=== PATIENT | male | born 1950 | race Caucasian/White ===

== ENCOUNTER 2025-03-18 18:20 | Observation (INO) | payer MEDICARE, OTHER, SELFPAY ==
[2025-03-18 15:37] VITALS: BP 162/72
[2025-03-18 16:26] VITALS: BMI 30.1
--- NOTE | 2025-03-18 16:43 | ED.GENMED ---
History of Present Illness
General
Chief Complaint: Rectal Bleeding
Time Seen by Provider: 03/18/25 16:18
History of Present Illness
History of Present Illness:
Patient is a 74-year-old man presenting to the emergency department with dark tarry stools for the past 3 weeks. Patient states that he noticed this about 3 weeks ago. This has never happened to him before. He is slightly lightheaded dizzy
especially upon movement. No abdominal pain. No alcohol use. He is taking ibuprofen for hip pain for the past few weeks. He is not on a blood thinner. He did have a colonoscopy done 3 years ago which was normal. Has never had an endoscopy. No
chest pain difficulty breathing. No vomiting.
Past History
Past History
ED Past Medical History: HTN
ED Past Surgical History: Appendectomy and Cholecystectomy
Social History
Tobacco: Non-smoker
Family History
Family History: Negative Early CAD
Phy Exam
Physical Exam
Physical Exam:
GENERAL: in no acute distress
HEENT: normocephalic, extraocular movements intact, dry oral mucosa
NECK: normal inspection
RESPIRATORY: no respiratory distress, clear to auscultation bilaterally
CARDIOVASCULAR: regular rate and rhythm
ABDOMEN/: soft, non-distended, non-tender to palpation, no rebound or guarding
EXTREMITIES: non-tender, no edema/swelling
NEUROLOGIC: awake and alert, moves all extremities
SKIN: warm
Course
Orders/Labs/Results
Orders:
Orders
03/18/25 16:43
0.9% Sodium Chloride 1000 ml [Nss] 1,000 ml IV BOLUS
03/18/25 16:44
Complete Blood Count/With Diff Urgent
Comprehensive Metabolic Panel Urgent
PTT Urgent
Prothrombin Time Urgent
03/18/25 16:48
Pantoprazole [Protonix IV] 40 mg IV NOW STA
03/18/25 17:00
Type+Screen Urgent
Abnormal Lab Results
03/18/25
16:44
RBC 2.78 L 10^6/uL
(4.70-6.10)
Hgb 9.3 L g/dL
(13.0-18.0)
Hct 27.2 L %
(39.0-52.0)
MCV 97.8 H fL
(80.0-94.0)
MCH 33.5 H pg
(27.0-31.0)
Chloride 109 H mmol/L
(98-107)
Calcium 8.3 L mg/dl
(8.4-10.2)
Total Protein 6.2 L g/dl
(6.3-8.2)
03/18/25 16:44
03/18/25 16:44
Vital Signs
Initial and Last Documented VS:
Initial Vital Signs
Temp Pulse Resp BP Pulse Ox
98.2 F 64 16 162/72 99
03/18/25 15:37 03/18/25 15:37 03/18/25 15:37 03/18/25 15:37 03/18/25 15:37
Last Documented Vital Signs
Temp Pulse Resp BP Pulse Ox
98.2 F 64 16 162/72 99
03/18/25 15:37 03/18/25 15:37 03/18/25 15:37 03/18/25 15:37 03/18/25 16:43
MDM/Problems Addressed
Differential Diagnosis Includes:
74-year-old man with history of hypertension, hyperlipidemia presenting to the emergency department with dark stools for the past few weeks as well as feeling lightheaded dizzy upon movement. On arrival vitals unremarkable. His stool is dark tarry
and guaiac positive per primary care note that patient was accompanied with. Concern for upper GI bleed likely from peptic ulcer disease as patient is on NSAIDs. Other to consider would be Seema-Aranda tear or AVM though less likely. History and
exam not consistent with variceal bleeding. Will check blood work and start fluids given orthostsis. Will give protonix.
*Pulse Oximetry
SaO2: 99
Oxygen Mode of Delivery: Room air
Patient hypoxic: no
*Critical Care Note
Total Time (30-74mins, 75-104mins- exclusive of procedures): Not Applicable
Update Note
Update Note:
Hemoglobin is 9.3 with baseline of 13.
Nubia-Blatchford Bleeding Score is 7. patient will need admission for further evaluation. Discussed with hospitalist who accepted patient to their service.
ED Attending Note
-
Portions of this chart may have been created with voice recognition software.� Occasional wrong word or��sound alike� substitutions may have occurred due to the inherent limitations of voice recognition software.
Discharge Plan
Departure
Patient Disposition: Admit
Date of Disposition: 03/18/25
Time of Disposition: 17:31
Presentation/result/management discussed w/ accepting MD/DO: Hospitalist
Discharge Problem:
UGIB (upper gastrointestinal bleed)
Prescriptions:
No Action
atorvastatin [Lipitor] 20 mg Tablet
20 mg PO DAILY
amlodipine [Norvasc] 5 mg Tablet
5 mg PO DAILY
tamsulosin [Flomax] 0.4 mg Capsule
0.4 mg PO DAILY
naproxen sodium [Aleve] 220 mg Tablet
220 mg PO BIDPRN PRN (Reason: mild pain)
Metamucil 3 In 1 Fiber
1 cap PO QPM
Referrals:
Stevo Monzon MD [Family Provider, Internal Medicine]
Interventions
Interventions:
*Risk Screen - Suicide Last Done: 03/18/25 15:37
*Neglect/Abuse Screening Last Done: 03/18/25 15:37
NT-Ajwzun-Kbgpsgvyov Assessment Last Done: 03/18/25 16:26
ED- Cardiac Assessment Last Done: 03/18/25 16:26
ED- Pulmonary Assessment Last Done: 03/18/25 16:26
Discharge Date and Time
Print Language: BULGARIAN
[2025-03-18] MEDS: NSS 1000 IV (16:45)
[2025-03-18 17:04] LABS: Hematocrit 27.2 % (39.0-52.0); Hemoglobin 9.3 g/dL (13.0-18.0); Mean Corp Hgb Conc. 34.2 g/dL (33.0-37.0); Mean Corpuscular Volume 97.8 fL (80.0-94.0); Nucleated Red Blood Cells % 0 % (-); Platelet Count 234 10^3/uL (130-400); Red Cell Dist. Width 13.3 % (11.5-14.5)
[2025-03-18 17:22] LABS: ALT (SGPT) 18 U/L (0-50); AST (SGOT) 18 U/L (17-59); Albumin 3.5 g/dl (3.5-5.0); Alkaline Phosphatase 54 U/L (38-126); Blood Urea Nitrogen 13 mg/dl (9-20); Calcium 8.3 mg/dl (8.4-10.2); Carbon Dioxide 28 mmol/L (22-30); Chloride 109 mmol/L (98-107); Estimated Creatinine Clearance 83 ml/min; Glucose 84 mg/dl (70-99); Potassium 3.7 mmol/L (3.5-5.1); Sodium 137 mmol/L (135-145); Total Protein 6.2 g/dl (6.3-8.2); eGFR > 60.00
[2025-03-18 17:23] LABS: INR 1.01; PT 13.6 Sec (11.4-14.6)
[2025-03-18 17:24] LABS: APTT 29.5 Sec (23.4-35.0)
--- NOTE | 2025-03-18 17:51 | HPS.HSE ---
Family Physician
-
Family Physician: Stevo Monzon
Chief Complaint
-
Dark stool
History of Present Illness
Patient is a pleasant 74 years old with a history of BPH, hypertension, colon polyp, who was taken Naprosyn at home for hip pain, presented to the ER with dark stool.
Patient was having hip pain and was taking Aleve as outpatient, he admitted taking 2 pills every 2 to 3 days, otherwise patient denies any chest pain or shortness of breath.
Patient was having dizziness and some dyspnea on exertion.
Patient seen and examined at bedside, denies any chest pain or shortness of breath, no abdominal pain, no nausea, no vomiting, no diarrhea or constipation.
Initial blood work in the ER shows hemoglobin 9.3 otherwise labs unremarkable.
Patient be admitted under hospitalist service, clear liquid diet, n.p.o. after midnight.
Medical History
Past Medical History
Past Medical History: Reports HTN, Hypercholesterolemia and Other
Additional Past Medical History:
BPH
Past Surgical History: Reports Other (Colonoscopy)
Social History
Tobacco: Non-smoker
Alcohol: None
Drug: None
Family History
Family History: Not pertinent
Allergies / Home Medications
Allergies reflects when Allergies were last updated in [facility].
Home Medications with original date entered in [facility]
Allergy/Medication List:
Allergies
Allergy/AdvReac Type Severity Reaction Status Date / Time
No Known Allergies Allergy Unverified 05/14/11 14:06
Home Medications
Metamucil 3 In 1 Fiber 1 cap PO QPM Supplement 03/18/25
amlodipine 5 mg tablet (Norvasc) 5 mg PO DAILY Blood Pressure 03/18/25
atorvastatin 20 mg tablet (Lipitor) 20 mg PO DAILY High Cholesterol 03/18/25
naproxen sodium 220 mg tablet (Aleve) 220 mg PO BIDPRN PRN mild pain 03/18/25
tamsulosin 0.4 mg capsule (Flomax) 0.4 mg PO DAILY 03/18/25
Review of Systems
-
A 12 point ROS was completed and negative except as noted: Yes
Constitutional: Reports Fatigue; Denies Fever, Weight Gain, Weight Loss or Sleep Disturbance
EENT: Denies Tearing, Sore Throat, Mouth Pain, Mouth Swelling or Runny Nose
Respiratory: Reports Other (Dyspnea on exertion); Denies Cough, Hemoptysis or Trouble Breathing
Cardiac: Denies Chest Pain, Diaphoresis, Palpitations or Syncope
Abdomen/GI: Denies Abdominal Pain, Nausea, Vomiting, Diarrhea, Constipated, Bloody Stools or Black Stools
: Denies Dysuria, Frequency, Flank Pain, Incontinence, Difficulty Voiding, Urgency, Bleeding or Dark Urine
Musculoskeletal: Denies Joint Pain, Joint Swelling, Muscle Pain, Muscle Stiffness or Edema
Skin: Denies Itching or Rash
Neurological: Reports Dizzy; Denies Headache, Weakness or Numbness
Endocrine: Denies Polyuria, Polydipsia or Temp Intolerance
Hematologic/Lymphatic: Denies Bleeding, Swollen Glands or Bruising
Psych: Reports Calm; Denies Depression, Anxiety or Panic Disorder
Physical Exam
Vital Signs
Vital Signs
Temp Pulse Resp BP Pulse Ox
98.2 F 64 16 162/72 99
03/18/25 15:37 03/18/25 15:37 03/18/25 15:37 03/18/25 15:37 03/18/25 16:43
Physical Exam
General: Well Developed, Well Nourished, No Apparent Distress, Comfortable and Good Appetite; No Pain, Chills or Sweats
HEENT: NormoCephalic, Moist mucous membranes, Atraumatic, Good Dentition, PERRLA, Nose Appears Normal and Ears Appear Normal
Respiratory: Clear
Cardiac: S1/S2 and Regular Rhythm
Breast: Deferred by me
GI: Soft, Non Tender, Non Distended and Normal Bowel Sounds
Genito-urinary: Deferred by me
Musculoskeletal: No Clubbing, No Cyanosis and No Edema
Skin: Warm; No Rash, Jaundice, Ulcers, Lesions or Decubitus Ulcers
Neuro: Awake, Alert, Oriented, AO x 3, No Motor Deficits, Nonfocal/grossly intact and Cranial Nerves Intact
Hematologic/Lymphatic: No Lymphadenopathy
Psych: Calm
Laboratory Results
-
03/18/25 16:44
03/18/25 16:44
Laboratory Results
PT 13.6 Sec (11.4-14.6) 03/18/25 16:44
INR 1.01 03/18/25 16:44
APTT 29.5 Sec (23.4-35.0) 03/18/25 16:44
Total Bilirubin 0.3 mg/dl (0.2-1.3) 03/18/25 16:44
AST 18 U/L (17-59) 03/18/25 16:44
ALT 18 U/L (0-50) 03/18/25 16:44
Alkaline Phosphatase 54 U/L (38-126) 03/18/25 16:44
Data Reviewed
-
Diagnostic Radiology: Report Reviewed by me
CT Scan: Report Reviewed by me
Medical Tests (Nuc Med, Echo, EKG etc): Report Reviewed by me
Lab Data: Labs Reviewed by me
Old Records: Reviewed
Impression/Plan
-
Impression:
Patient is a pleasant 74 years old with a history of BPH, hypertension, colon polyp, who was taken Naprosyn at home for hip pain, presented to the ER with dark stool.
Patient was having hip pain and was taking Aleve as outpatient, he admitted taking 2 pills every 2 to 3 days, otherwise patient denies any chest pain or shortness of breath.
Patient was having dizziness and some dyspnea on exertion.
Patient seen and examined at bedside, denies any chest pain or shortness of breath, no abdominal pain, no nausea, no vomiting, no diarrhea or constipation.
Initial blood work in the ER shows hemoglobin 9.3 otherwise labs unremarkable.
Patient be admitted under hospitalist service, clear liquid diet, n.p.o. after midnight.
Assessment/plan:
Acute GI bleed
Severe upper GI bleed.
Secondary to NSAID use.
Discontinue naproxen.
Pantoprazole IV twice daily.
Clear liquid diet.
N.p.o. after midnight.
Gastroenterology consult.
Monitor H&H
Acute blood loss anemia.
Symptomatic anemia
Normocytic
Secondary to above GI bleeding
Check iron studies/vitamin B12
History of hypertension
Continue home meds.
History of hyperlipidemia
Continue statin
CODE STATUS: Full code
DVT prophylaxis: SCDs
Diet: Liquid diet
Disposition: N.p.o. after midnight
Total time spent on today's encounter was 75 minutes which included time spent in counseling the patient/family regarding diagnosis and treatment plan as listed above, goals of care, and symptom management. Case was discussed with nursing staff,
specialists, and care coordinators/case management. All labs and imaging personally reviewed by me. Remainder the time spent in detailed review of previous records, lab data, imaging, and other medical provider documentation.
--- NOTE | 2025-03-18 18:03 | W.PN.UPDATE ---
Update Note
Progress Note Update
Post EGD:
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 No active bleeding and it was superficial. So, plan today - clears, repeat hgb at 1300 and if stable and he's
not orthostatic - ok for home on BID ppi x 1 month, then once daily ppi with normal diet. 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
biospies pending for h.pylori and of the ampulla deformity
will set up patient for outpatient followup
[2025-03-18 18:58] VITALS: BP 137/73
[2025-03-18] MEDS: PROTONIX IV 40 MG IV ×2 (19:01→21:00)
[2025-03-18 19:50] VITALS: BP 165/71; BMI 29.5
[2025-03-18] MEDS: NSS (PRESERVATIVE FREE) 10 ML IV (20:59)
[2025-03-18] MEDS: METAMUCIL, KONSYL 1 PACKET PO (20:59)
[2025-03-18] MEDS: NORVASC 5 MG PO (21:00)
[2025-03-18 21:23] LABS: Hematocrit 24.9 % (39.0-52.0); Hemoglobin 8.8 g/dL (13.0-18.0)
[2025-03-18 22:53] VITALS: BP 146/70
[2025-03-19 03:00] VITALS: BP 125/62
[2025-03-19 06:33] LABS: Hematocrit 25.6 % (39.0-52.0); Hemoglobin 8.8 g/dL (13.0-18.0); Mean Corp Hgb Conc. 34.4 g/dL (33.0-37.0); Mean Corpuscular Volume 93.8 fL (80.0-94.0); Platelet Count 219 10^3/uL (130-400); Red Cell Dist. Width 13.2 % (11.5-14.5)
--- NOTE | 2025-03-19 07:06 | CON.GI ---
Addendum entered and electronically signed by Aliya Brian DO 03/19/25 09:49:
Nolberto is a 74-year-old male with history of hyperlipidemia, obesity who has had hip pain for a few months who has been on Aleve daily for at least 1-1/2 months. About a 1-1/2 weeks ago he noticed his stools changed to dark and sticky. Started
feeling lightheaded went to his neighbor who is a retired GI doctor who told him to go to his PCP. PCP did an occult blood test which was black and strongly heme positive. He does not take a PPI but does get indigestion at times and takes Tums.
He denies any dysphagia, has heartburn on occasion, no nausea vomiting or abdominal pain. He has never had a blood transfusion. Had an ERCP in 2010 for choledocholithiasis. Last colonoscopy in 2020.
Patient on twice daily PPI. He is hemodynamically stable. Reviewed blood work. Normal BUN, hemoglobin 9.3 down from 14.5 in November 2024. Hemoglobin today 8.8. Overnight had black and brown stool.
Plan: EGD today
Original Note:
Consultation
-
Date/Time Consultation Requested: 03/18/251954
Date/Time Consultation Performed: 03/18/25744
Requesting Provider: Elvira Del Castillo MD
Performing Provider: ROCIO Babcock, Aliya Brian DO
Reason for Consultation: GI bleed
Medical History
Chief Complaint / HPI
History of Present Illness:
Pt is a 74yo presents with hx Asthma, HTN, hypercholesterolemia, BPH, appe, ragini, with hx hip pain with Aleve use twice a day for last 2 weeks. He is noted with onset of dark stools about 1 1/2 weeks ago. On admission hbg 9.3 with drop to 8.8
iwth normal BUN. Last hbg 14.5 in November 2024. He admits to some dizziness and mild shortness of breath with symptoms. He has chronic constipation with variable stools will have BM then several loose stools. Over last 2 weeks noted increased
stool frequency and tarry consistency of stools with slight red hue around stool. Overnight noted black then brown stool. No hx EGD in past but prior colon and ERCP. He dose also admit to occasional TUMS use but no anticoagulation use.
Pt denies dysphagia, odynophagia, GERD, nausea, vomiting, hematemesis, abdominal pain.
05/2020 [facility]-- colonoscopy - One 5 mm polyp in the rectum. Biopsied. Diverticulosis, normal mucosa in entire colon bx taken for microscopic colitis bx HP polyp, neg for colitis
04/2011 [facility] -ERCP Choledocholithiasis was found. Complete removal was accomplished by biliary sphincterotomy and sweep of duct with balloon.
05/2008- [facility] - colonoscopy - Minimal diverticulosis in the sigmoid colon. The examination was otherwise normal.
Past Medical History
Past Medical History: Asthma, HTN, Hypercholesterolemia and Other (BPH, colon polyps)
Past Surgical History: Appendectomy, Cholecystectomy and Other (prior ERCP for choledocholithiasis )
Social History
Tobacco: Former Smoker
Alcohol: None
Drug: None
Personal:
Living: With Family
Employment: Retired
Family History
Family History: Reviewed & Not Pertinent
Allergies / Home Medications
Allergy/AdvReac Type Severity Reaction Status Date / Time
No Known Allergies Allergy Unverified 05/14/11 14:06
�Medication �Instructions �Recorded
Metamucil 3 In 1 Fiber 1 cap PO QPM Supplement 03/18/25
amlodipine 5 mg tablet (Norvasc) 5 mg PO DAILY Blood Pressure 03/18/25
atorvastatin 20 mg tablet (Lipitor) 20 mg PO DAILY High Cholesterol 03/18/25
naproxen sodium 220 mg tablet 220 mg PO BIDPRN PRN mild pain 03/18/25
(Aleve)
tamsulosin 0.4 mg capsule (Flomax) 0.4 mg PO DAILY 03/18/25
Review of Systems
Vital Signs
Temp Pulse Resp BP Pulse Ox
98.1 F 61 16 125/62 97
03/19/25 03:00 03/19/25 03:00 03/19/25 03:00 03/19/25 03:00 03/19/25 03:00
Physical Exam
Exam
General: Well Developed, Well Nourished and No Apparent Distress
HEENT: Normocephalic
Respiratory: Clear
Cardiac: Other (bradicardia )
GI: Soft, Non Tender and Non Distended
Musculoskeletal: No Clubbing and No Cyanosis
Skin: Warm and Dry
Neuro: Awake, Alert and AO x 3
Psych: Calm
Results
WBC 6.3 10^3/uL (4.8-10.8) 03/19/25 05:25
Hgb 8.8 g/dL (13.0-18.0) L 03/19/25 05:25
Hct 25.6 % (39.0-52.0) L 03/19/25 05:25
MCV 93.8 fL (80.0-94.0) 03/19/25 05:25
Plt Count 219 10^3/uL (130-400) 03/19/25 05:25
Absolute Neuts (auto) 3.7 10^3/uL (1.4-6.5) 03/18/25 16:44
PT 13.6 Sec (11.4-14.6) 03/18/25 16:44
INR 1.01 03/18/25 16:44
APTT 29.5 Sec (23.4-35.0) 03/18/25 16:44
Sodium 137 mmol/L (135-145) 03/18/25 16:44
Potassium 3.7 mmol/L (3.5-5.1) 03/18/25 16:44
Chloride 109 mmol/L (98-107) H 03/18/25 16:44
Carbon Dioxide 28 mmol/L (22-30) 03/18/25 16:44
BUN 13 mg/dl (9-20) 03/18/25 16:44
Creatinine 0.8 mg/dL (0.7-1.3) 03/18/25 16:44
Calcium 8.3 mg/dl (8.4-10.2) L 03/18/25 16:44
Total Bilirubin 0.3 mg/dl (0.2-1.3) 03/18/25 16:44
AST 18 U/L (17-59) 03/18/25 16:44
ALT 18 U/L (0-50) 03/18/25 16:44
Alkaline Phosphatase 54 U/L (38-126) 03/18/25 16:44
Diagnostic Image Results:
none
Prior GI Procedures:
05/2020 [facility]-- colonoscopy - One 5 mm polyp in the rectum. Biopsied. Diverticulosis, normal mucosa in entire colon bx taken for microscopic colitis bx HP polyp, neg for colitis
04/2011 [facility] -ERCP Choledocholithiasis was found. Complete removal was accomplished by biliary sphincterotomy and sweep of duct with balloon.
05/2008- [facility] - colonoscopy - Minimal diverticulosis in the sigmoid colon. The examination was otherwise normal.
Assessment / Plan
-
Pt is a 74yo presents with hx Asthma, HTN, hypercholesterolemia, BPH, appe, ragini, with hx hip pain with Aleve use twice a day for last 2 weeks. He is noted with onset of dark stools about 1 1/2 weeks ago. On admission hbg 9.3 with drop to 8.8
iwth normal BUN. Last hbg 14.5 in November 2024. He admits to some dizziness and mild shortness of breath with symptoms. He has chronic constipation with variable stools will have BM then several loose stools. Over last 2 weeks noted increased
stool frequency and tarry consistency of stools with slight red hue around stool. Overnight noted black then brown stool. No hx EGD in past but prior colon and ERCP. He dose also admit to occasional TUMS use but no anticoagulation use. hx ERCP in
2010 for stone removal and colonoscopy 05/2020 [facility]- - One 5 mm polyp in the rectum. Biopsied. Diverticulosis, normal mucosa in entire colon bx taken for microscopic colitis bx HP polyp, neg for colitis
-dark stool with concern for UGI bleed
-anemia with drop in hbg from November
-hip pain with Naprosyn use
-chronic constipation/diarrhea prior to admission
other medical problems:
-HTN
-hypercholesterolemia
-BPH
-appe
-s/p Ragini, prior ERCP for stone removal 2010
PLAN:
etiology of bleeding repeated to PUD with recent NSAID use, ectasia, mass vs other--likely upper source but SB and colon in differential with normal BUN
plan for EGD today -- Pt agreeable to proceed-- if neg consider colon/capsule
trend hbg and stool record
transfuse <7
NPO
cont Protonix BID
currently on Metamucil daily
-
-
Thank you for consultation and allowing me to participate in the patient's care. Please call the transmission system operator GI physician during the after hours with any questions or concerns.
[2025-03-19 07:18] LABS: Blood Urea Nitrogen 9 mg/dl (9-20); Calcium 7.9 mg/dl (8.4-10.2); Carbon Dioxide 27 mmol/L (22-30); Chloride 108 mmol/L (98-107); Estimated Creatinine Clearance 73 ml/min; Glucose 97 mg/dl (70-99); Potassium 3.7 mmol/L (3.5-5.1); Sodium 141 mmol/L (135-145); eGFR > 60.00
[2025-03-19 07:28] LABS: Total Iron Binding Capacity 262 ug/dl (261-462)
[2025-03-19 07:31] VITALS: BP 129/66
[2025-03-19 08:03] LABS: Vitamin B12 382 pg/ml (239-931)
[2025-03-19 08:09] LABS: Ferritin 50.3 ng/ml (17.9-464.0)
--- NOTE | 2025-03-19 08:33 | W.PN.HOSP.TC ---
Addendum entered and electronically signed by Estefany Felix MD 03/19/25 11:49:
Attending�addendum:
I saw and evaluated the patient. I reviewed the resident�s note and agree with findings and plan as documented in the resident�s note.��patient seen and examined at bedside, denies any chest pain or shortness of breath, no abdominal pain, no nausea,
no vomiting, no diarrhea or constipation.
EGD done today showed:
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
esophagus.
- No biopsies taken in the esophagus in the setting of active melena
and hospitalization. Will need repeat EGD with biopsies. Will need
indefinite ppi
- 2 cm hiatal hernia.
- Erosive gastropathy with no bleeding and no stigmata of recent
bleeding. Biopsied.
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
and the ampulla has changed. Biopsied - minimal biopsies taken with
tissue received. If non-diagnostic will need repeat. Likely will
need EUS with Dr. Beaulieu.
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
- The examination was otherwise normal
Physical�exam:
GENERAL : Patient is awake, alert, oriented x3
HEENT: Nonicteric sclerae, PERRLA, EOMI. Oropharynx clear. Moist mucous membranes. Conjunctivae appear well perfused.
CHEST: Chest wall is nontender.
HEART: Regular rate and rhythm without murmurs.
LUNGS: Clear to auscultation bilaterally.
ABDOMEN: Soft, positive bowel sounds, nontender, no organomegaly.
RECTAL: Deferred.
MUSCLES/EXTREMITIES: No abnormal range of motion, no swelling.SKIN: No rash, no excessive bruising, petechiae, or purpura.
NEUROLOGIC: Cranial nerves II-XII intact without motor/sensory deficit.
�
Assessment/plan:
Acute GI bleed
EGD finding as above.
Continue pantoprazole twice daily.
Clear liquid diet.
Repeat H&H and orthostatic vitals at noon if normal can be discharged home
Symptomatic anemia.
Patient still with dizziness.
Vitamin B12 deficiency.
Status post injection
CODE STATUS: Full code
DVT prophylaxis: SCDs
Diet: CLD
Disposition: Repeat H&H and orthostatics and discharge if normal
�
Total time spent on today�s encounter was 52 minutes which included time spent in counseling the patient/family regarding diagnosis and treatment plan as listed above, goals of care, and symptom management. Case was discussed with nursing staff,
specialists, and care coordinators/case management. All labs and imaging personally reviewed by me. Remainder the time spent in detailed review of previous records, lab data, imaging, and other medical provider documentation.
Original Note:
Today's Communication/Plan
-
Monitor H&H, can be dc'd if Hgb stable at 1 PM
Continue PPI
Vitamin B 12 supplementation
Assessment / Plan
Assessment / Plan
ASSESSMENT:
74 y/o male with PMH HTN, colon polyps and hyperlipidemia who presented with dark stool x 3 weeks. He had been taking naproxen at home for hip pain- approx 2 pills every 2-3 days. He had associated dizziness and dyspnea on exertion. Hgb in ED 9.3.
Admitted for GI bleed secondary to NSAID use, put on IV Protonix BID, and has been NPO for possible EGD.
05/2020 [facility]-- colonoscopy - One 5 mm polyp in the rectum. Biopsied. Diverticulosis, normal mucosa in entire colon bx taken for microscopic colitis bx HP polyp, neg for colitis
EGD 03/19/25:
Impression:
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
esophagus.
- No biopsies taken in the esophagus in the setting of active melena
and hospitalization. Will need repeat EGD with biopsies. Will need
indefinite ppi
- 2 cm hiatal hernia.
- Erosive gastropathy with no bleeding and no stigmata of recent
bleeding. Biopsied.
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
and the ampulla has changed. Biopsied - minimal biopsies taken with
tissue received. If non-diagnostic will need repeat. Likely will
need EUS with Dr. Beaulieu.
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
- The examination was otherwise normal.
PLAN:
# Acute GI bleed
Hgb 9.3 on, baseline 13. Hgb 8.8 03/19 morning. Will repeat H&H around 1 PM today. If stable, can be discharged today.
Secondary to Naproxen use for hip pain, discontinue NSAIDs
Continue Protonix BID x1 month, and once daily indefinitely.
GI consulted. EGD performed 03/19/25- as above. No source of bleed found.
Clear liquid diet today.
Await biopsy results.
Avoid NSAIDs. Use Tylenol for pain
Transfuse PRBCs if Hgb <7.
# Acute blood loss anemia
Symptomatic anemia, secondary to GI bleed, patient feeling dizzy
Normocytic
Normal iron studies
Vitamin B12 - 382, lower end of normal. Will give Vit B 12 1000 mg IM.
# History of Hypertension
Continue amlodipine 5 mg daily
# History of hyperlipidemia
Continue atorvastatin 20 mg daily
DVT prophylaxis: SCDs
FULL CODE
Anticipated Discharge: Today
Subjective/Interval History
-
Date of Service: March 19, 2025
Patient evaluated at bedside this morning. He states he still feels a little dizzy. No other complaints.
Objective Data
-
Labs:
Laboratory Results
03/18/25 03/19/25
21:06 05:25
WBC 6.3
Hgb 8.8 L 8.8 L
Hct 24.9 L 25.6 L
Plt Count 219
Sodium 141
Potassium 3.7
Chloride 108 H
Carbon Dioxide 27
BUN 9
Creatinine 0.8
Glucose 97
Calcium 7.9 L
Vital Signs:
Vital Signs
Temp Pulse Resp BP Pulse Ox
98.3 F 56 16 129/66 94
03/19/25 07:31 03/19/25 07:31 03/19/25 07:31 03/19/25 07:31 03/19/25 07:31
I&O
03/18/25 03/19/25 03/20/25
06:59 06:59 06:59
Intake Total 960 / 960
Output Total 1500 / 1500
Balance -540 / -540
Review of Systems
-
History Source: Patient
All other systems: Reviewed and negative
EENT: Reports No Symptoms Reported
Respiratory: Reports No Symptoms
Cardiac: Reports No Symptoms
Abdomen/GI: Reports No Symptoms
Breast: Reports No Symptoms
Genitourinary: Reports No Symptoms
Musculoskeletal: Reports No Symptoms
Neuro: Reports Dizzy
Endocrine: Reports No Symptoms
Hematologic / Lymphatic: Reports No Symptoms
Allergy / Immunology: Reports No Symptoms
Physical Exam
-
General: Well Developed, Well Nourished, No Apparent Distress, Comfortable, Conversant and Obese
HEENT: Normocephalic, Atraumatic, Moist Mucous Membranes, Nose Appears Normal and Ears Appear Normal
Respiratory: Clear to Auscultation
Cardiac: Regular Rhythm and S1/S2
GI: Soft, Nontender, Nondistended, Normal Bowel Sounds and No Hepatosplenomegaly
Musculoskeletal: No Clubbing, No Cyanosis and No Edema
Skin: Warm
Neuro: Awake and AO x 3
Psych: Calm and Intact Judgement/Insight
Data Reviewed
-
Medical Tests (Nuc Med, Echo etc): Report Reviewed by me and Discussed with Physician
Labs: Labs Reviewed by me and Discussed with Physician
Old Records: Reviewed
[2025-03-19] MEDS: NSS (PRESERVATIVE FREE) 10 ML IV (10:41)
[2025-03-19] MEDS: PROTONIX IV 40 MG IV (10:42)
[2025-03-19] MEDS: FLOMAX 0.4 MG PO (10:42)
[2025-03-19] MEDS: LIPITOR 20 MG PO (10:42)
[2025-03-19] MEDS: NORVASC 5 MG PO (10:45)
[2025-03-19 10:52] VITALS: BP 130/68
[2025-03-19] MEDS: CYANOCOBALAMIN 1000 MCG IM (12:51)
[2025-03-19] MEDS: FERRLECIT 110 MG IV (13:06)
[2025-03-19 13:13] LABS: Hemoglobin 10.1 g/dL (13.0-18.0)
[2025-03-19 14:21] VITALS: BP 117/54
[2025-03-19 14:30] VITALS: BP 113/56; BP 117/54; BP 123/57; PULSE 50; PULSE 67; PULSE 76
--- NOTE | 2025-03-19 14:42 | W.PN.UPDATE ---
Update Note
Progress Note Update
Patient's repeat Hgb is 10.1 today, which is improved from 8.8 yesterday. His orthostatic vital signs are as follows:
LYING POSITION: 117/54, HR 67
SITTIN/56, HR 50
STANDIN/57, HR 76
Therefore, stable for discharge at this time.
--- NOTE | 2025-03-19 14:44 | W.DCSUMMARY ---
Addendum entered and electronically signed by Estefany Felix MD 03/19/25 16:09:
Attending�addendum:
I saw and evaluated the patient. I reviewed the resident�s note and agree with findings and plan as documented in the resident�s note.��patient seen and examined at bedside, denies any chest pain or shortness of breath, no abdominal pain, no nausea,
no vomiting, no diarrhea or constipation.
EGD done today showed:
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
esophagus.
- No biopsies taken in the esophagus in the setting of active melena
and hospitalization. Will need repeat EGD with biopsies. Will need
indefinite ppi
- 2 cm hiatal hernia.
- Erosive gastropathy with no bleeding and no stigmata of recent
bleeding. Biopsied.
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
and the ampulla has changed. Biopsied - minimal biopsies taken with
tissue received. If non-diagnostic will need repeat. Likely will
need EUS with Dr. Beaulieu.
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
- The examination was otherwise normal
Physical�exam:
GENERAL : Patient is awake, alert, oriented x3
HEENT: Nonicteric sclerae, PERRLA, EOMI. Oropharynx clear. Moist mucous membranes. Conjunctivae appear well perfused.
CHEST: Chest wall is nontender.
HEART: Regular rate and rhythm without murmurs.
LUNGS: Clear to auscultation bilaterally.
ABDOMEN: Soft, positive bowel sounds, nontender, no organomegaly.
RECTAL: Deferred.
MUSCLES/EXTREMITIES: No abnormal range of motion, no swelling.SKIN: No rash, no excessive bruising, petechiae, or purpura.
NEUROLOGIC: Cranial nerves II-XII intact without motor/sensory deficit.
�
Assessment/plan:
Acute GI bleed
EGD finding as above.
Continue pantoprazole twice daily.
Repeat H&H and orthostatics normal, will discharge.
Symptomatic anemia.
Patient still with dizziness.
Vitamin B12 deficiency.
Status post injection
CODE STATUS: Full code
DVT prophylaxis: SCDs
Diet: CLD
Disposition: Repeat H&H and orthostatics normal, will discharge.
�
Total time spent on today�s encounter was 40 minutes which included time spent in counseling the patient/family regarding diagnosis and treatment plan as listed above, goals of care, and symptom management. Case was discussed with nursing staff,
specialists, and care coordinators/case management. All labs and imaging personally reviewed by me. Remainder the time spent in detailed review of previous records, lab data, imaging, and other medical provider documentation.
Original Note:
Documented by User: Keaton Madrid MD, Resident 03/19/25 15:00
Discharge Summary
Discharge Data
Date of Admission: 03/18/25
Date of Discharge: 03/19/25
-
Pending Results: Yes
Additional Pending Results:
EGD biopsy
Hospital Course
Discharging Physician : Dr. Estefany Felix and Dr. Keaton Madrid
Disposition : Home
Primary care physician : Dr. Stevo Monzon
Principal Discharge diagnosis : Upper GI Bleed, Acute blood loss anemia
Chronic Discharge diagnosis : Hypertension, Hyperlipidemia
Hospital Course : A 74 year old male with a history of hypertension, hyperlipidemia and colonic polyps who presented with 3 weeks of dark stools associated with dizziness and dyspnea on exertion. He reported frequent use of naproxen (2 pills every
2 to 3 days). Initial Hgb was 9.3 g/dL, which down-trended to 8.8 g/dL on 03/18/25. He was admitted for evaluation and management of a suspected upper GI bleed- likely secondary to NSAID use. The patient was started on IV Protonix 40 mg twice daily
and underwent EGD on 03/19/25, which did not reveal an active source of bleeding; biopsies were obtained, and results pending. Hemoglobin improved to 10.1 g/dL on 03/20/25. Iron studies were normal, and anemia was noted to be normocytic. Vitamin B12
was at the lower limit of normal; he received an IM B12 injection and was advised to continue oral B12/B9 supplementation at home. Orthostatic vitals were negative, and he remained hemodynamically stable throughout hospitalization. At discharge, he
was instructed to continue Protonix 40 mg twice daily for one month, then decrease to once daily indefinitely. He was advised to strictly avoid NSAIDs and use Tylenol for pain. He is to follow up with his PCP within 1 week and with gastroenterology
as needed. The patient will be contacted regarding biopsy results; if not contacted, he should call the GI office for follow-up.
Procedure findings :
EGD 03/19/25:
Impression:
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
esophagus.
- No biopsies taken in the esophagus in the setting of active melena
and hospitalization. Will need repeat EGD with biopsies. Will need
indefinite ppi
- 2 cm hiatal hernia.
- Erosive gastropathy with no bleeding and no stigmata of recent
bleeding. Biopsied.
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
and the ampulla has changed. Biopsied - minimal biopsies taken with
tissue received. If non-diagnostic will need repeat. Likely will
need EUS with Dr. Beaulieu.
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
Discharge Plan
-
Patient Disposition: Home (Routine Discharge)
Discharge Diagnosis/Procedures: Upper GI Bleed
Acute blood loss anemia
Condition: Good
Diet: Low Cholesterol and Low Sodium
Activity: No restrictions
Driving Restrictions: As prior to admission
Blood Work: CBC, CMP in 1 week (obtain script from PCP)
Referrals:
Stevo Monzon MD [Family Provider, Internal Medicine] - in less than 1 week
Aliya Brian DO [Active, Gastroenterology] - As needed
Additional Discharge Medication Instructions: Take Pantoprazole 40 mg twice daily for 1 month, then once daily indefinitely thereafter.
Prescriptions:
New
pantoprazole 40 mg tablet,delayed release (DR/EC)
40 mg PO BID Qty: 60 0RF
vitamin F81-wmnkz acid 2,500-400 mcg tablet,disintegrating
1 tab PO DAILY Qty: 30 0RF
Continued
atorvastatin [Lipitor] 20 mg Tablet
20 mg PO DAILY
amlodipine [Norvasc] 5 mg Tablet
5 mg PO DAILY
tamsulosin [Flomax] 0.4 mg Capsule
0.4 mg PO DAILY
Metamucil 3 In 1 Fiber
1 cap PO QPM
Discontinued
naproxen sodium [Aleve] 220 mg Tablet
220 mg PO BIDPRN PRN (Reason: mild pain)
Discharge Orders:
Discharge Patient (As Directed); Ordered 03/19/25
Ordered By: Estefany Felix
Discharge Date and Time
Discharge Date/Time: 03/19/25 15:29
Print Language: LIBERIAN

Documented by User: Estefany Felix MD 03/19/25 16:08
Discharge Summary
Discharge Data
Date of Admission: 03/18/25
Date of Discharge: 03/19/25
Discharge Plan
-
Patient Disposition: Home (Routine Discharge)
Discharge Diagnosis/Procedures: Upper GI Bleed
Acute blood loss anemia
Condition: Good
Diet: Low Cholesterol and Low Sodium
Activity: No restrictions
Driving Restrictions: As prior to admission
Blood Work: CBC, CMP in 1 week (obtain script from PCP)
Referrals:
Stevo Monzon MD [Family Provider, Internal Medicine] - in less than 1 week
Aliya Brian DO [Active, Gastroenterology] - As needed
Additional Discharge Medication Instructions: Take Pantoprazole 40 mg twice daily for 1 month, then once daily indefinitely thereafter.
Prescriptions:
New
pantoprazole 40 mg tablet,delayed release (DR/EC)
40 mg PO BID Qty: 60 0RF
vitamin G08-ftmmi acid 2,500-400 mcg tablet,disintegrating
1 tab PO DAILY Qty: 30 0RF
Continued
atorvastatin [Lipitor] 20 mg Tablet
20 mg PO DAILY
amlodipine [Norvasc] 5 mg Tablet
5 mg PO DAILY
tamsulosin [Flomax] 0.4 mg Capsule
0.4 mg PO DAILY
Metamucil 3 In 1 Fiber
1 cap PO QPM
Discontinued
naproxen sodium [Aleve] 220 mg Tablet
220 mg PO BIDPRN PRN (Reason: mild pain)
Discharge Orders:
Discharge Patient (As Directed); Ordered 03/19/25
Ordered By: Estefany Felix
Discharge Date and Time
Discharge Date/Time: 03/19/25 15:29
Print Language: LIBERIAN
== END 2025-03-19 15:29 | disposition home or self-care (01) ==
LOC: 3 WEST ACU 18:20
PROVIDERS: ADMITTING PHYSICIAN General Practice; CONSULT PHYSICIAN Internal Medicine; EMERGENCY PHYSICIAN Student in an Organized Health Care Education/Training Program; FAMILY PHYSICIAN Internal Medicine
DX: K26.4 Chronic or unspecified duodenal ulcer with hemorrhage (principal); T39.315A Adverse effect of propionic acid derivatives, initial encounter; Y92.9 Unspecified place or not applicable; D62 Acute posthemorrhagic anemia; R42 Dizziness and giddiness; M25.559 Pain in unspecified hip; K21.01 Gastro-esophageal reflux disease with esophagitis, with bleeding; I10 Essential (primary) hypertension; E78.00 Pure hypercholesterolemia, unspecified; K44.9 Diaphragmatic hernia without obstruction or gangrene; K22.89 Other specified disease of esophagus; K31.89 Other diseases of stomach and duodenum; K22.70 Barrett's esophagus without dysplasia; E53.8 Deficiency of other specified B group vitamins; R06.09 Other forms of dyspnea; J45.909 Unspecified asthma, uncomplicated; K59.09 Other constipation; N40.0 Benign prostatic hyperplasia without lower urinary tract symptoms; Z90.49 Acquired absence of other specified parts of digestive tract; Z79.1 Long term (current) use of non-steroidal anti-inflammatories (NSAID); Z79.899 Other long term (current) drug therapy; Z87.891 Personal history of nicotine dependence; Z86.0100 Personal history of colon polyps, unspecified; Z87.19 Personal history of other diseases of the digestive system
CPT/HCPCS: 43239; 80048; 80053; 82607; 82728; 83550; 85014; 85018; 85025; 85027; 85610; 85730; 86850; 86900; 86901; 88305; 88342; 99285; G0378; J2916

== ENCOUNTER → 2025-04-01 09:55 | Outpatient (REF) | payer MEDICARE, OTHER, SELFPAY ==
[2025-04-01 11:21] LABS: Hematocrit 34.6 % (39.0-52.0); Hemoglobin 11.6 g/dL (13.0-18.0); Mean Corp Hgb Conc. 33.5 g/dL (33.0-37.0); Mean Corpuscular Volume 96.1 fL (80.0-94.0); Nucleated Red Blood Cells % 0 % (-); Platelet Count 238 10^3/uL (130-400); Red Cell Dist. Width 13.5 % (11.5-14.5)
== END ==
LOC: REG 09:55
PROVIDERS: ATTENDING PHYSICIAN Internal Medicine; FAMILY PHYSICIAN Internal Medicine
DX: D64.9 Anemia, unspecified (principal); K26.9 Duodenal ulcer, unspecified as acute or chronic, without hemorrhage or perforation
CPT/HCPCS: 36415; 85025